=== PATIENT | male | born 1980 | race Caucasian/White ===

== ENCOUNTER 2017-12-20 15:45 | Emergency (ER) | payer MEDICAID, OTHER ==
--- NOTE | 2017-12-20 16:05 | EDPHY ---
H & P Time Seen by Provider: 12/20/17 15:49 HPI/ROS: 37 yo M presents c/o bilateral swollen hands of unknown duration, he also complains of alcohol issues and would consider stopping drinking, he states he would like to be "tranquilized", he does not want to attend a rehab as it is "too much talking". He states he has been drinking alot for the last month. No other complaints. He is here with his who does not drink and is sober. She requests he be tested for kidney or liver failure, she feels this may be contributing to his hand swelling. Review of systems General no fever no chills no weakness HEENT no eye pain no eye discharge. No eye redness, no sore throat Respiratory no cough, no shortness of breath Cardiac no chest pain, pos hand edema GI no abdominal pain, no diarrhea, no constipation, no nausea, no vomiting no flank pain, no hematuria, no dysuria Musculoskeletal no myalgias, no joint pain Heme no easy bruising, no easy bleeding Endo no polyuria, no polydipsia Skin pos rashes, no pruritus Neuro no syncope, no dizziness, no headaches Psych is no suicidal ideation, no homicidal ideation, pos alcohol abuse Past Medical/Surgical History: hypertension alcohol abuse hyperlipidemia eczema Social History: Heavy alcohol use Smoking Status: Current every day smoker Physical Exam: 37-year-old male in no acute distress, smells of alcohol, vital signs stable, afebrile Atraumatic normocephalic OP slightly dry Neck supple no JVD Lungs clear to auscultation bilaterally no wheezing Heart rapid rate regular rhythm 105 Abdomen nondistended bowel sounds present soft nontender Extremities no cyanosis or clubbing Mild edema of bilateral hands Skin scattered areas of excoriation, papular erythema over bilateral dorsums of hands wrist crease and elbow creases No lymphangitic streaks, no purulent drainage Neuro Alert and oriented, no focal deficits, gait intact, no evidence of ataxia, no asterixis, no tremor Constitutional: Initial Vital Signs Temperature (C) 36.6 C 12/20/17 15:59 Heart Rate 110 H 12/20/17 15:59 Respiratory Rate 18 12/20/17 15:59 Blood Pressure 144/83 H 12/20/17 15:59 O2 Sat (%) 94 12/20/17 15:59 O2 Delivery Mode Room Air Allergies/Adverse Reactions: egg Allergy (Verified 11/15/13 15:46) Fish Containing Products Allergy (Verified 11/15/13 15:46) influenza virus vaccine, specific [Influenza Virus Vacc,Specific] Allergy ( Verified 11/15/13 15:46) Penicillins Allergy (Verified 11/15/13 15:46) pecans Allergy (Uncoded 11/15/13 15:46) walnuts Allergy (Uncoded 11/15/13 15:46) Home Medications: Medication Instructions Recorded Bystolic 10/16/12 Allopurinol 300 MG (RX) 11/15/13 Lisinopril 12/20/17 Metformin HCl 12/20/17 Medical Decision Making ED Course/Re-evaluation: Patient presents initially complaining of bilateral swollen hands and alcohol abuse. IV established Fluids given CBC within normal limits CMP with mild elevation of LFTs consistent with alcohol abuse Lipase normal Impression/plan #1 Alcohol abuse Patient given IV fluids and basic labs checked Patient and family member given resources for alcohol treatment, specifically advised to go to the [facility]. #2 Bilateral Swollen Hands Eczema Advised to use steroid ointment, moisturizer f/u pcp #3 Mild LFT elevation advised to stop alcohol use follow up pcp Differential Diagnosis: Differential diagnosis considered but not limited to: #1 Alcohol issues- Alcohol intoxication, alcohol withdrawal, alcoholic hepatitis , alcoholic gastritis #2 Swollen hands- peripheral edema, hypoproteinemia, fluid retention, eczema, cellulitis - Data Points Laboratory Results: Laboratory Results 12/20/17 16:30 12/20/17 16:30 12/20/17 12/20/17 16:30 16:30 WBC 8.70 10^3/uL 10^3/uL (3.80-9.50) RBC 5.22 10^6/uL 10^6/uL (4.40-6.38) Hgb 17.2 g/dL g/dL (13.7-17.5) Hct 45.9 % % (40.0-51.0) MCV 87.9 fL fL (81.5-99.8) MCH 33.0 pg pg (27.9-34.1) MCHC 37.5 g/dL H g/dL (32.4-36.7) RDW 11.4 % L % (11.5-15.2) Plt Count 159 10^3/uL 10^3/uL (150-400) MPV 9.1 fL fL (8.7-11.7) Neut % (Auto) 61.1 % % (39.3-74.2) Lymph % (Auto) 28.4 % % (15.0-45.0) [place] % (Auto) 5.7 % % (4.5-13.0) Eos % (Auto) 4.4 % % (0.6-7.6) Baso % (Auto) 0.3 % % (0.3-1.7) Nucleat RBC Rel Count 0.0 % % (0.0-0.2) Absolute Neuts (auto) 5.31 10^3/uL 10^3/uL (1.70-6.50) Absolute Lymphs (auto) 2.47 10^3/uL 10^3/uL (1.00-3.00) Absolute Monos (auto) 0.50 10^3/uL 10^3/uL (0.30-0.80) Absolute Eos (auto) 0.38 10^3/uL 10^3/uL (0.03-0.40) Absolute Basos (auto) 0.03 10^3/uL 10^3/uL (0.02-0.10) Absolute Nucleated RBC 0.00 10^3/uL 10^3/uL (0-0.01) Immature Gran % 0.1 % % (0.0-1.1) Immature Gran # 0.01 10^3/uL 10^3/uL (0.00-0.10) Sodium 140 mEq/L mEq/L (135-145) Potassium 4.4 mEq/L mEq/L (3.5-5.2) Chloride 103 mEq/L mEq/L (97-110) Carbon Dioxide 20 mEq/l L mEq/l (22-31) Anion Gap 17 mEq/L H mEq/L (8-16) BUN 23 mg/dL mg/dL (7-23) Creatinine 1.2 mg/dL mg/dL (0.7-1.3) Estimated GFR > 60 Glucose 140 mg/dL H mg/dL (70-100) Calcium 8.9 mg/dL mg/dL (8.5-10.4) Total Bilirubin 0.6 mg/dL mg/dL (0.1-1.4) AST 65 IU/L H IU/L (17-59) ALT 104 IU/L H IU/L (21-72) Alkaline Phosphatase 110 IU/L IU/L (38-126) Total Protein 6.8 g/dL g/dL (6.3-8.2) Albumin 3.9 g/dL g/dL (3.5-5.0) Lipase 161 IU/L IU/L (23-300) Medications Given: Discontinued Medications Sodium Chloride (Ns) 1,000 mls @ 0 mls/hr IV ONCE ONE PRN Reason: Wide Open Stop: 12/20/17 16:22 Last Admin: 12/20/17 16:28 Dose: 1,000 mls Departure - Departure Disposition: Home, Routine, Self-Care Clinical Impression: Alcohol intoxication, Eczema of both hands Condition: Good Instructions: Eczema (ED), Abuse of Alcohol (ED) Referrals: NONE *PRIMARY CARE P,. [Primary Care Provider] - As per Instructions Stand Alone Forms: [facility]
[2017-12-20] MEDS ORDERED: NS 1,000 ML IV ONE (16:21)
[2017-12-20 16:35] LABS: PLATELET COUNT 159 10^3/uL (150-400)
[2017-12-20 17:49] VITALS: BP 126/86
== END 2017-12-20 17:24 | disposition home or self-care (01) ==
LOC: CED 15:45
DX: L30.9 Dermatitis, unspecified (principal); F10.129 Alcohol abuse with intoxication, unspecified; I10 Essential (primary) hypertension; F17.200 Nicotine dependence, unspecified, uncomplicated
CPT/HCPCS: 80053-PO; 83690-PO; 85025-PO